=== PATIENT | male | born 1950 | race Caucasian/White ===

== ENCOUNTER 2017-11-26 11:01 | Inpatient (IN) | payer OTHER, MEDICAID ==
[~2017-11-26] VITALS: Ht 175.3 cm; Wt 82.7 kg
[2017-11-26 11:37] LABS: Basophils # (auto) 0.1 uL; Eosinophils # (auto) 0.1 uL; Lymphocytes # (auto) 0.5 uL; Monocytes # (auto) 0.6 uL
[2017-11-26 11:39] LABS: Basophils % (auto) 0.5 % (0.0-2.0); Eosinophils % (auto) 0.9 % (0.0-7.0); Hematocrit 35.3 % (41.0-53.0); Hemoglobin 11.1 g/dL (13.5-17.5); Lymphocytes % (auto) 5.1 % (10.0-50.0); Mean Corpuscular Hemoglobin 26.6 pg (28.0-32.0); Mean Corpuscular Hgb Conc. 31.3 g/dL (32.0-36.0); Mean Corpuscular Volume 84.8 fL (80.0-100.0); Monocytes % (auto) 6.1 % (0.0-12.0); Neutrophils # (auto) 8.4 uL; Neutrophils % (auto) 87.4 % (37.0-80.0); Platelet Count (auto) 256 10^3/uL (140-450); Red Blood Cells 4.17 10^6/uL (4.5-5.90); White Blood Cell 9.7 10^3/uL (4.4-10.8)
[2017-11-26 11:46] LABS: Red Cell Distribution Width 23.1 % (11.8-14.3)
[2017-11-26 11:59] LABS: Albumin 2.6 g/dL (3.4-5.0); BUN/Creatinine Ratio 17.8; Bilirubin, Total 0.4 mg/dL (0.2-1.0); Magnesium 2.7 mg/dL (1.6-2.6); Potassium 4.1 mmol/L (3.5-5.1); Total Protein 7.1 g/dL (6.4-8.2)
[2017-11-26 12:57] LABS: INR 1.03 (0.9-1.15); Prothrombin Time 11.2 sec (9.37-12.3)
[2017-11-26] MEDS ORDERED: LORazepam 0.5 MG TAB PO PRN (13:45)
[2017-11-26] MEDS ORDERED: TEMAZEPAM 15 MG CAP PO PRN (13:45)
[2017-11-26] MEDS ORDERED: MORPHINE SULFATE 4 MG/ML SYR/VIAL IV PRN (13:45)
[2017-11-26] MEDS ORDERED: ACETAMINOPHEN 500 MG TAB PO PRN (13:45)
[2017-11-26] MEDS ORDERED: NITROGLYCERIN 0.4 MG SL TAB SL PRN (13:45)
[2017-11-26] MEDS ORDERED: LACTULOSE 20Gm/30ML SOLN PO PRN (13:45)
[2017-11-26] MEDS ORDERED: PROMETHAZINE HCL 25 MG/ML 1ML IV PRN (13:45)
[2017-11-26] MEDS ORDERED: NITROGLYCERIN 50MG/250ML 250 ML IV SCH (14:30)
[2017-11-26] MEDS ORDERED: hydrALAZINE HCL 20 MG/ML VL IV ONE (14:30)
[2017-11-26] MEDS ORDERED: NITROGLYCERIN 50MG/250ML 250 ML IV ONE (14:30)
[2017-11-26] MEDS: MORPHINE SULFATE 4 MG/ML SYR/VIAL IV PRN ×2 (15:10→23:41)
[2017-11-26 15:28] LABS: Alcohol, Urine < 3.0 mg/dL (0-5); Amphetamine Screen, Urine NEGATIVE (NEGATIVE); Barbiturate Scree,Urine NEGATIVE (NEGATIVE); Benzodiazephine Screen, Urine NEGATIVE (NEGATIVE); Cannabinoid Screen, Urine NEGATIVE (NEGATIVE); Cocaine Screen, Urine NEGATIVE (NEGATIVE); Opiate Scree,Urine NEGATIVE (NEGATIVE); Phencyclidine Screen, Urine NEGATIVE (NEGATIVE)
[2017-11-26 15:30] LABS: Urine Bacteria NONE SEEN /hpf (None Seen); Urine Blood Negative /uL (Negative); Urine Specific Gravity 1.008 (1.001-1.035); Urine WBC 2 /hpf (0 - 3)
[2017-11-26] MEDS ORDERED: FUROSEMIDE 40 MG/4 ML VIAL IV ONE (17:00)
[2017-11-26] MEDS: FUROSEMIDE 40 MG/4 ML VIAL IV SCH (17:30)
[2017-11-26] MEDS: hydrALAZINE HCL 20 MG/ML VL IV PRN (20:45)
[2017-11-26] MEDS: CARVEDILOL 3.125 MG TAB PO SCH (22:00)
[2017-11-26] MEDS: POTASSIUM CHL 20 Meq TABLET PO SCH (22:00)
[2017-11-26] MEDS: ATORVASTATIN 20 MG TAB PO SCH (22:00)
[2017-11-26] MEDS: HYDROcodone-ACET 5/325MG TAB PO PRN (22:29)
[2017-11-27 05:31] LABS: Eosinophils # (auto) 0.2 uL; Hemoglobin 10.2 g/dL (13.5-17.5); Monocytes # (auto) 0.7 uL
[2017-11-27 05:37] LABS: Basophils # (auto) 0.1 uL; Basophils % (auto) 0.7 % (0.0-2.0); Eosinophils % (auto) 2.1 % (0.0-7.0); Hematocrit 33.2 % (41.0-53.0); Lymphocytes # (auto) 0.7 uL; Lymphocytes % (auto) 8.4 % (10.0-50.0); Mean Corpuscular Hemoglobin 26.1 pg (28.0-32.0); Mean Corpuscular Hgb Conc. 30.7 g/dL (32.0-36.0); Mean Corpuscular Volume 84.8 fL (80.0-100.0); Monocytes % (auto) 8.7 % (0.0-12.0); Neutrophils # (auto) 6.4 uL; Neutrophils % (auto) 80.1 % (37.0-80.0); Platelet Count (auto) 241 10^3/uL (140-450); Red Blood Cells 3.92 10^6/uL (4.5-5.90)
[2017-11-27 05:38] LABS: Red Cell Distribution Width 23.1 % (11.8-14.3)
[2017-11-27 05:52] LABS: Albumin 2.5 g/dL (3.4-5.0); BUN/Creatinine Ratio 17.2; Bilirubin, Total 0.6 mg/dL (0.2-1.0); Calcium 8.3 mg/dL (8.5-10.1); Total Protein 6.5 g/dL (6.4-8.2)
[2017-11-27] MEDS: FUROSEMIDE 40 MG/4 ML VIAL IV SCH ×2 (06:21→19:55)
[2017-11-27] MEDS: hydrALAZINE HCL 20 MG/ML VL IV PRN (06:49)
[2017-11-27] MEDS: PANTOPRAZOLE 40 MG TAB PO SCH (09:49)
[2017-11-27] MEDS: CARVEDILOL 3.125 MG TAB PO SCH ×2 (09:49→22:13)
[2017-11-27] MEDS: ASPirin 81 mg TAB PO SCH (09:49)
[2017-11-27] MEDS: POTASSIUM CHL 20 Meq TABLET PO SCH ×2 (09:49→22:13)
[2017-11-27] MEDS: ENOXAPARIN SOD 40 MG/0.4 ML SYRINGE SC SCH (09:50)
[2017-11-27] MEDS ORDERED: NITROGLYCERIN 0.2MG/HR TOPICAL PATCH TD SCH (10:00)
[2017-11-27] MEDS ORDERED: ENALAPRIL MALEATE 2.5 MG TAB PO SCH (10:00)
[2017-11-27] MEDS ORDERED: amLODIPine BESYLATE 5 MG TAB PO ONE (11:45)
[2017-11-27] MEDS ORDERED: CARVEDILOL 3.125 MG TAB PO ONE (11:45)
[2017-11-27 13:24] LABS: Urine Bacteria NONE SEEN /hpf (None Seen); Urine Blood TRACE /uL (Negative); Urine Specific Gravity 1.006 (1.001-1.035); Urine WBC 3 /hpf (0 - 3)
[2017-11-27 13:33] LABS: Protein, Urine 16.6 mg/dL (0.0-11.9)
[2017-11-27 21:30] VITALS: BP 173/63
[2017-11-27 22:00] VITALS: BP 173/63
[2017-11-27] MEDS: ATORVASTATIN 20 MG TAB PO SCH (22:14)
[2017-11-27] MEDS ORDERED: CARV6.25 PO (22:32)
[2017-11-27] MEDS ORDERED: POTA20TA53 PO (22:32)
[2017-11-27] MEDS ORDERED: HYDR25TA35 PO (22:32)
[2017-11-27] MEDS ORDERED: FURO40TA PO (22:32)
[2017-11-27] MEDS ORDERED: ISOS40TA6 PO (22:32)
[2017-11-27] MEDS ORDERED: hydrALAZINE HCL 20 MG/ML VL IV PRN (23:45)
[2017-11-27] MEDS: hydrALAZINE HCL 10 MG TAB PO SCH (23:52)
[2017-11-28 05:00] VITALS: BP 149/86
[2017-11-28] MEDS: FUROSEMIDE 40 MG/4 ML VIAL IV SCH (05:47)
[2017-11-28] MEDS: hydrALAZINE HCL 10 MG TAB PO SCH (05:47)
[2017-11-28 06:15] LABS: BUN/Creatinine Ratio 17.2; Calcium 8.6 mg/dL (8.5-10.1); Phosphorus 3.6 mg/dL (2.5-4.90); Potassium 4.8 mmol/L (3.5-5.1); Uric Acid 9.2 mg/dL (3.5-7.2)
[2017-11-28 07:46] LABS: Basophils # (auto) 0.1 uL; Basophils % (auto) 0.6 % (0.0-2.0); Eosinophils # (auto) 0.2 uL; Hemoglobin 10.2 g/dL (13.5-17.5)
[2017-11-28 07:49] LABS: Eosinophils % (auto) 2.1 % (0.0-7.0); Hematocrit 32.3 % (41.0-53.0); Lymphocytes # (auto) 0.6 uL; Lymphocytes % (auto) 7.3 % (10.0-50.0); Mean Corpuscular Hemoglobin 26.4 pg (28.0-32.0); Mean Corpuscular Hgb Conc. 31.5 g/dL (32.0-36.0); Mean Corpuscular Volume 83.6 fL (80.0-100.0); Monocytes # (auto) 0.9 uL; Monocytes % (auto) 10.3 % (0.0-12.0); Neutrophils # (auto) 6.6 uL; Neutrophils % (auto) 79.7 % (37.0-80.0); Nucleated Red Blood Cells % 0.1 %; Platelet Count (auto) 234 10^3/uL (140-450); Red Blood Cells 3.87 10^6/uL (4.5-5.90); White Blood Cell 8.3 10^3/uL (4.4-10.8)
[2017-11-28 07:56] LABS: Red Cell Distribution Width 22.8 % (11.8-14.3)
[2017-11-28 09:00] VITALS: BP 169/84
[2017-11-28] MEDS: ENOXAPARIN SOD 40 MG/0.4 ML SYRINGE SC SCH (09:29)
[2017-11-28] MEDS: POTASSIUM CHL 20 Meq TABLET PO SCH (09:31)
[2017-11-28] MEDS: CARVEDILOL 3.125 MG TAB PO SCH (09:31)
[2017-11-28] MEDS: PANTOPRAZOLE 40 MG TAB PO SCH (09:31)
[2017-11-28] MEDS: ASPirin 81 mg TAB PO SCH (09:32)
[2017-11-28] MEDS: HYDROcodone-ACET 5/325MG TAB PO PRN (09:52)
[2017-11-28] MEDS ORDERED: amLODIPine BESYLATE 5 MG TAB PO SCH (10:00)
[2017-11-28 12:00] VITALS: BP 159/76
[2017-11-28] MEDS ORDERED: AML5T PO (12:49)
[2017-11-28] MEDS ORDERED: POTA20TA53 PO (12:49)
[2017-11-28] MEDS ORDERED: ASPI81CH43 PO (12:49)
[2017-11-28] MEDS ORDERED: CARV6.25 PO (12:49)
[2017-11-28] MEDS ORDERED: HYDR25TA35 PO (12:49)
[2017-11-28] MEDS ORDERED: FURO40TA PO (12:49)
[2017-11-28] MEDS ORDERED: ISOS40TA6 PO (12:49)
[2017-11-28] MEDS ORDERED: hydrALAZINE HCL 25 MG TAB PO SCH (14:00)
[2017-11-28 16:00] VITALS: BP 138/74
[2017-11-28 16:45] VITALS: BP 139/74
== END 2017-11-28 17:15 | disposition home health service (06) | DRG 291 ==
LOC: ER 11:01 → TELE 11:02 → TELE-WESTW 11-27 21:11
PROVIDERS: ADMIT Internal Medicine; ATTEND Internal Medicine
DX: I13.0 Hypertensive heart and chronic kidney disease with heart failure and stage 1 through stage 4 chronic kidney disease, or unspecified chronic kidney disease (principal); I50.43 Acute on chronic combined systolic (congestive) and diastolic (congestive) heart failure; N17.0 Acute kidney failure with tubular necrosis; K59.00 Constipation, unspecified; F41.9 Anxiety disorder, unspecified; G47.00 Insomnia, unspecified; N18.3 Chronic kidney disease, stage 3 (moderate); D64.9 Anemia, unspecified; I25.10 Atherosclerotic heart disease of native coronary artery without angina pectoris; Z91.14 Patient's other noncompliance with medication regimen; Z91.19 Patient's noncompliance with other medical treatment and regimen; Z95.5 Presence of coronary angioplasty implant and graft
CPT/HCPCS: 36415; 71045; 76775; 80048; 80053; 80061; 80307; 81001; 82306; 82550; 82570; 83735; 83880; 84100; 84156; 84300; 84443; 84484; 84550; 85025; 85610; 85652; 85730; 86141; 93005; 93306; 94761; 96374; 96375